=== PATIENT | female | born 1960 | race Caucasian/White ===

== ENCOUNTER 2017-06-01 19:35 | Emergency (ER) | payer OTHER ==
[~2017-06-01] VITALS: Ht 160 cm; Wt 65.8 kg
--- NOTE | 2017-06-01 19:52 | NUR ---
PT BIB FAMILY, PT C/O HIGH BP WITH DIZZINESS AND BLURRED VISION X 4 DAYS. PT AOX3 RR EVEN AND UNLABORED. NO SOB NOTED. NAD NOTED. NO NVD AT THIS TIME. PT GOWNED AND PLACED ON MONITOR. DR ROMO AT BEDSIDE FOR EVAL.
[2017-06-01] MEDS ORDERED: hydrALAZINE HCL IV 20 MG VIAL IV ONE (20:00)
[2017-06-01] MEDS ORDERED: LORAZEPAM INJ 2 MG/ML VIAL IV ONE (20:00)
[2017-06-01] MEDS ORDERED: hydrALAZINE HCL IV 20 MG VIAL ONE (20:16)
[2017-06-01 20:19] LABS: BASOPHILS % (AUTO) 0.4 % (0.0-2.0); EOSINOPHILS % (AUTO) 0.4 % (0.0-6.0); HEMATOCRIT 42 % (33-45); HEMOGLOBIN 14.3 g/dL (11.5-14.8); LYMPHOCYTES # (AUTO) 0.7 /CMM (0.8-4.8); LYMPHOCYTES % (AUTO) 17.2 % (20.0-44.0); MEAN CORPUSCULAR HEMOGLOBIN 29 PG (26.0-33.0); MEAN CORPUSCULAR HGB CONC 34 g/dl (31.0-36.0); MEAN CORPUSCULAR VOLUME 85 fL (82-100); MONOCYTES # (AUTO) 0.3 /CMM (0.1-1.30); MONOCYTES % (AUTO) 7.7 % (2.0-12.0); NEUTROPHILS # (AUTO) 2.8 /CMM (1.8-8.9); NEUTROPHILS % (AUTO) 74.3 % (43.0-81.0); PLATELET COUNT (AUTO) 280 /CMM (150-450); RED BLOOD CELL COUNT(AUTO) 4.95 MIL/uL (4.0-5.2); WHITE BLOOD COUNT (AUTO) 3.8 K/uL (4.3-11.0)
[2017-06-01 20:28] LABS: CALCIUM, SERUM 8.6 mg/dL (8.5-10.1); CARBON DIOXIDE 24 mmol/L (21-32); CHLORIDE 97 mmol/L (98-107); CREATININE 0.7 mg/dL (0.6-1.3); GLUCOSE 188 mg/dL (74-106); POTASSIUM 3.1 mmol/L (3.5-5.1); SODIUM SERUM 132 mmol/L (136-145); UREA NITROGEN, BLOOD 10 mg/dL (7-18)
[2017-06-01 20:33] LABS: INR 0.91 (0.87-1.13); PROTHROMBIN TIME 9.5 SECS (9.5-12.7)
[2017-06-01 20:38] LABS: TROPONIN I < 0.017 ng/mL (0.00-0.056)
[2017-06-01] MEDS ORDERED: LORAZEPAM INJ 2 MG/ML VIAL ONE (20:43)
--- NOTE | 2017-06-01 20:46 | NUR ---
PT TO CT.
--- NOTE | 2017-06-01 20:52 | NUR ---
PT RETURNED FROM CT.
--- NOTE | 2017-06-01 21:07 | NUR ---
DR. ROMO AT BEDSIDE SPEAKING TO PT REGARDING RESULTS.
[2017-06-01] MEDS ORDERED: POTASSIUM CHLORIDE 20 MEQ TAB.PRT.SR PO ONE ×2 (21:30)
--- NOTE | 2017-06-01 21:36 | NUR ---
IV removed. Catheter intact and site benign. Pressure and 4x4 applied to site. No bleeding noted. Patient discharged to home in stable condition. Written and verbal after care instructions given. Patient verbalizes understanding of instruction. ambulatory with a steady gait. instructed not to drive. pt verbalize understanding.
[2017-06-01 21:37] VITALS: BP 143/86
== END 2017-06-01 21:38 | disposition home or self-care (01) ==
LOC: ER 19:37
DX: E87.6 Hypokalemia (principal); I10 Essential (primary) hypertension
CPT/HCPCS: 36415; 70450; 71010; 80048; 84484; 85025; 85730; 93005; 96374; 96375; 99285; A4606; J0360; J2060; Z7610

== ENCOUNTER 2020-07-17 20:02 | Emergency (ER) | payer OTHER ==
[~2020-07-17] VITALS: Ht 157.5 cm; Wt 60.3 kg
--- NOTE | 2020-07-17 20:04 | NUR ---
BIBS FOR C/O RUQ BAD PAIN X 3 DAYS. WAS REFFERED BY URGENT CARE FOR "RUQ PAIN W/ HEPATOMEGALY", pt aaox4, not in any distress, no sob, vss, pending md cary
--- NOTE | 2020-07-17 20:33 | NUR ---
PIV 18G STARTED, BLOOD DRAWN AND ALONG W/ URINE SAMPLE WAS SENT TO LAB
--- NOTE | 2020-07-17 20:34 | NUR ---
US TECH AT BED SIDE
[2020-07-17 20:52] LABS: BASOPHILS # (AUTO) 0.1 /CMM (0.0-0.2); BASOPHILS % (AUTO) 1.1 % (0.0-2.0); EOSINOPHILS % (AUTO) 0.6 % (0.0-6.0); HEMATOCRIT 42 % (33-45); HEMOGLOBIN 13.9 g/dL (11.5-14.8); LYMPHOCYTES # (AUTO) 1.6 /CMM (0.8-4.8); LYMPHOCYTES % (AUTO) 27.6 % (20.0-44.0); MEAN CORPUSCULAR HGB CONC 33 g/dl (31.0-36.0); MEAN CORPUSCULAR VOLUME 88 fL (82-100); MONOCYTES # (AUTO) 0.6 /CMM (0.1-1.30); MONOCYTES % (AUTO) 10.1 % (2.0-12.0); NEUTROPHILS # (AUTO) 3.5 /CMM (1.8-8.9); NEUTROPHILS % (AUTO) 60.6 % (43.0-81.0); PLATELET COUNT (AUTO) 303 /CMM (150-450); RED BLOOD CELL COUNT(AUTO) 4.78 MIL/uL (4.0-5.2); WHITE BLOOD COUNT (AUTO) 5.7 K/uL (4.3-11.0)
[2020-07-17 21:11] LABS: ALBUMIN 4.1 g/dL (3.4-5.0); BILIRUBIN,DIRECT 2.6 mg/dL (0.0-0.2); BILIRUBIN,TOTAL 3.7 mg/dL (0.2-1.0); CALCIUM, SERUM 9.5 mg/dL (8.5-10.1); CREATININE 0.8 mg/dL (0.6-1.3); POTASSIUM 3.5 mmol/L (3.5-5.1); TOTAL PROTEIN, SERUM 7.9 g/dL (6.4-8.2)
[2020-07-17 21:16] LABS: BILIRUBIN,URINE SMALL (NEGATIVE); COLOR,URINE YELLOW (YELLOW); PROTEIN,URINE NEGATIVE (NEGATIVE); UGLUCOSE NEGATIVE (NEGATIVE)
[2020-07-17 21:17] LABS: LEUKOCYTE ESTERASE ,URINE SMALL (NEGATIVE); NITRITE, URINE NEGATIVE (NEGATIVE); RBC,URINE 0-2 /HPF (0-2); UROBILINOGEN,URINE 0.2 EU/dL (0.2)
[2020-07-17 21:18] LABS: BACTERIA,URINE Few /HPF (None Seen); SQUAMOUS EPITHELIAL CELL,UR Few /HPF (None Seen)
--- NOTE | 2020-07-17 21:27 | NUR ---
CALLED [facility] FOR US READ
[2020-07-17] MEDS ORDERED: PIPERACILLIN /TAZOBACTAM 3.375 G in IV D5W 50 ML IV ONE (21:30)
[2020-07-17] MEDS ORDERED: MORPHINE SULFATE INJ 2 MG/ML DISP.SYRIN IV ONE (21:30)
[2020-07-17] MEDS ORDERED: ONDANSETRON HCL/PF - ER 4 MG/2 ML VIAL IV ONE (21:30)
--- NOTE | 2020-07-17 21:38 | NUR ---
MOVE SHEET AND CLINICAL INFORMATION GIVEN TO ADMITTING DEPT
[2020-07-17] MEDS ORDERED: AMLO5TAB4 PO (21:40)
[2020-07-17] MEDS ORDERED: LOSA25TA3 PO (21:40)
[2020-07-17] MEDS ORDERED: MORPHINE SULFATE INJ 2 MG/ML DISP.SYRIN ONE (21:54)
[2020-07-17] MEDS ORDERED: ONDANSETRON HCL/PF 4 MG/2 ML VIAL ONE (21:54)
[2020-07-17] MEDS ORDERED: PIPERACILLIN /TAZOBACTAM 3.375 G VIAL IV ONE (21:54)
--- NOTE | 2020-07-17 22:04 | NUR ---
DR CASAS ON THE PHONE WITH PT'S DAUGHTER, GIDEON
--- NOTE | 2020-07-17 22:26 | NUR ---
DR. SWARTZ SPEAKING WITH DR. REDD (JIMY CHAUDHARY)
--- NOTE | 2020-07-17 23:29 | NUR ---
ACCEPTED: [facility] ROOM#[id number] RN FOR REPORT: [phone] AMBULANCE: [facility] 0030
--- NOTE | 2020-07-18 00:11 | NUR ---
REPORT GIVEN TO MARIVEL MAI AT [facility]. PER RN, TELL TRANSPORT TO PASS BY ER FOR ADMISSION
--- NOTE | 2020-07-18 01:10 | NUR ---
SPOKE WITH J CARLOS FROM [facility], NEW ETA [id number]
[2020-07-18 01:30] VITALS: BP 140/85
--- NOTE | 2020-07-18 01:30 | NUR ---
PT LEFT TO [facility] ([facility]). PT LEFT IN STABLE CONDITION, -SOB/CP. VSS. NOT IN ACUTE DISTRESS. REPORT GIVEN TO AMBULANCE STAFF. PPW GIVEN
== END 2020-07-18 01:30 | disposition short-term general hospital (02) ==
LOC: ER 20:05
DX: K85.10 Biliary acute pancreatitis without necrosis or infection (principal); N30.90 Cystitis, unspecified without hematuria; R74.8 Abnormal levels of other serum enzymes; R17 Unspecified jaundice; I10 Essential (primary) hypertension; Z20.822 Contact with and (suspected) exposure to COVID-19
CPT/HCPCS: 36415; 76705; 80048; 80076; 81001; 83690; 85025; 87086; 87426; 96365; 96375; 99285; C9803; J2270; J2405; J2543

== ENCOUNTER 2022-04-11 07:49 | Emergency (ER) | payer OTHER ==
[~2022-04-11] VITALS: Ht 157.5 cm; Wt 59.0 kg
[~2022-04-11 07:49] MED LIST: AMLO5TAB4 PO; LOSA25TA3 PO
--- NOTE | 2022-04-11 08:00 | NUR ---
Received pt 61yrs femal came from home accompany by tamiko c/o dizzy this morning awake and alert fallow command respiration spont and easy
[2022-04-11] MEDS ORDERED: ONDANSETRON HCL/PF 4 MG/2 ML VIAL ONE (08:20)
[2022-04-11] MEDS ORDERED: MAG HYDROX/AL HYDROX/SIMETH 30 ML UDC PO ONE (08:30)
[2022-04-11] MEDS ORDERED: ONDANSETRON HCL/PF 4 MG/2 ML VIAL IVP ONE (08:30)
[2022-04-11] MEDS ORDERED: MECLIZINE HCL 12.5 MG TABLET PO ONE (08:30)
[2022-04-11] MEDS ORDERED: IV NS 0.9% 1,000 ML BAG IV ONE (08:30)
[2022-04-11] MEDS ORDERED: FAMOTIDINE (20 MG) 20 MG TABLET PO ONE (08:30)
[2022-04-11] MEDS ORDERED: LIDOCAINE VISCOUS 2% UD 15 ML UDC MM ONE (08:30)
[2022-04-11 08:33] LABS: BASOPHILS % (AUTO) 0.7 % (0.0-2.0); EOSINOPHILS % (AUTO) 2.1 % (0.0-6.0); HEMATOCRIT 41 % (33-45); HEMOGLOBIN 13.8 g/dL (11.5-14.8); LYMPHOCYTES # (AUTO) 2.4 K/uL (0.8-4.8); LYMPHOCYTES % (AUTO) 44.8 % (20.0-44.0); MEAN CORPUSCULAR HGB CONC 33 g/dl (31.0-36.0); MEAN CORPUSCULAR VOLUME 87 fL (82-100); MONOCYTES # (AUTO) 0.3 K/uL (0.1-1.30); NEUTROPHILS # (AUTO) 2.5 K/uL (1.8-8.9); NEUTROPHILS % (AUTO) 46.4 % (43.0-81.0); PLATELET COUNT (AUTO) 324 K/uL (150-450); RED BLOOD CELL COUNT(AUTO) 4.73 MIL/uL (4.0-5.2); WHITE BLOOD COUNT (AUTO) 5.3 K/uL (4.3-11.0)
[2022-04-11] MEDS ORDERED: MAG HYDROX/AL HYDROX/SIMETH 30 ML UDC ONE (08:33)
[2022-04-11] MEDS ORDERED: MECLIZINE HCL 25 MG TABLET ONE (08:33)
[2022-04-11] MEDS ORDERED: LIDOCAINE VISCOUS 2% UD 15 ML UDC ONE (08:33)
[2022-04-11] MEDS ORDERED: FAMOTIDINE (20 MG) 20 MG TABLET ONE (08:33)
[2022-04-11 08:41] LABS: CREATININE 0.7 mg/dL (0.6-1.3); POTASSIUM 3.6 mmol/L (3.5-5.1)
--- NOTE | 2022-04-11 08:45 | NUR ---
inserted ango catheter g 20 on lt AC BLOOD drow and sent to lab
--- NOTE | 2022-04-11 08:55 | NUR ---
TO CT SACN of head via mora
--- NOTE | 2022-04-11 11:00 | NUR ---
UA SENT TO LAB
[2022-04-11] MEDS ORDERED: AMLO-212 PO (11:42)
[2022-04-11] MEDS ORDERED: LOSA50TA39 PO (11:42)
[2022-04-11] MEDS ORDERED: ASPI-1498 PO (11:42)
--- NOTE | 2022-04-11 11:46 | NUR ---
MOVE SHEET SUBMITTED.
--- NOTE | 2022-04-11 12:21 | NUR ---
JOSE ANTONIO HAIRSTON SENT TO LAB
--- NOTE | 2022-04-11 13:27 | NUR ---
SPOKE TO JIMY DINH [phone]. FAXED COVID RESULT TO [phone]
[2022-04-11] MEDS: LORAZEPAM 1 MG TABLET PO ONE ×2 (13:30→16:10)
[2022-04-11] MEDS: ASPIRIN 81 MG TAB.CHEW PO ONE ×2 (13:30→16:11)
[2022-04-11] MEDS ORDERED: IOHEXOL-350 100 ML VIAL IV ONE (13:40)
[2022-04-11] MEDS ORDERED: IV NS 0.9% 250 ML IV ONE (13:40)
--- NOTE | 2022-04-11 13:53 | NUR ---
wating for telmetery bed
--- NOTE | 2022-04-11 15:37 | NUR ---
ACCEPTED [facility]. BED [phone] TRANSPORT ETA PENDING.
--- NOTE | 2022-04-11 16:03 | NUR ---
HAND OFF SAMANTHA ORTA TRANSFER TO [facility] ROOM [id number]
--- NOTE | 2022-04-11 16:04 | NUR ---
[facility] CALLED, ETA 60-75 MIN PER J CARLOS.
[2022-04-11] MEDS ORDERED: LORAZEPAM 0.5 MG TABLET ONE (16:07)
[2022-04-11] MEDS ORDERED: ASPIRIN 81 MG TAB.CHEW ONE (16:08)
--- NOTE | 2022-04-11 17:49 | NUR ---
MARCY AT BED SIDE(JEN) [facility]
[2022-04-11 18:18] VITALS: BP 151/79
== END 2022-04-11 18:59 | disposition short-term general hospital (02) ==
LOC: ER 07:50
DX: R42 Dizziness and giddiness (principal); R94.02 Abnormal brain scan; I10 Essential (primary) hypertension; Z20.822 Contact with and (suspected) exposure to COVID-19; Z79.82 Long term (current) use of aspirin; Z79.899 Other long term (current) drug therapy
CPT/HCPCS: 99285; 70498; 96374; 96361; 87426; 93005; 70496; 85025; 80048; 36415; 84484; 87081; 70450; J8597; J2405; J7030; J7050; Q9967; C9803

== ENCOUNTER 2023-03-14 20:01 | Emergency (ER) | payer OTHER ==
[~2023-03-14] VITALS: Ht 160 cm; Wt 59.0 kg
[~2023-03-14 20:01] MED LIST changes: +AMLO-212 PO; -AMLO5TAB4 PO; +ASPI-1498 PO; -LOSA25TA3 PO; +LOSA50TA39 PO
[2023-03-14 21:11] VITALS: TEMP 98.9
[2023-03-14 21:46] LABS: BASOPHILS % (AUTO) 0.6 % (0.0-2.0); EOSINOPHILS % (AUTO) 0.3 % (0.0-6.0); HEMATOCRIT 41 % (33-45); HEMOGLOBIN 13.6 g/dL (11.5-14.8); LYMPHOCYTES # (AUTO) 1.1 K/uL (0.8-4.8); LYMPHOCYTES % (AUTO) 14.4 % (20.0-44.0); MEAN CORPUSCULAR HEMOGLOBIN 29 PG (26.0-33.0); MEAN CORPUSCULAR HGB CONC 33 g/dl (31.0-36.0); MEAN CORPUSCULAR VOLUME 87 fL (82-100); MONOCYTES # (AUTO) 0.3 K/uL (0.1-1.30); MONOCYTES % (AUTO) 3.7 % (2.0-12.0); NEUTROPHILS # (AUTO) 6.4 K/uL (1.8-8.9); PLATELET COUNT (AUTO) 329 K/uL (150-450); RED CELL DISTRIBUTION WIDTH 13.8 % (11.5-15.0); WHITE BLOOD COUNT (AUTO) 7.9 K/uL (4.3-11.0)
[2023-03-14 22:04] LABS: CALCIUM, SERUM 9.5 mg/dL (8.5-10.1); CARBON DIOXIDE 27 mmol/L (21-32); CHLORIDE 103 mmol/L (98-107); CREATININE 0.7 mg/dL (0.6-1.3); GLUCOSE 120 mg/dL (74-106); POTASSIUM 3.9 mmol/L (3.5-5.1); SODIUM SERUM 137 mmol/L (136-145); UREA NITROGEN, BLOOD 13 mg/dL (7-18)
[2023-03-14] MEDS ORDERED: CT SWABBABLE VALVE TRANS SET 1 EA INFUS.SET MC ONE (23:28)
[2023-03-14] MEDS ORDERED: IOHEXOL-350 100 ML VIAL IV ONE (23:28)
[2023-03-14] MEDS ORDERED: IV NS 0.9% 250 ML IV ONE (23:28)
[2023-03-15] MEDS ORDERED: LABETALOL HCL IV 100MG VIAL ONE (01:14)
[2023-03-15] MEDS ORDERED: LABETALOL HCL IV 100MG VIAL IV ONE (01:30)
[2023-03-15] MEDS ORDERED: IV NS 0.9% 1,000 ML BAG IV ONE (01:30)
[2023-03-15 05:23] VITALS: BP 161/85; O2SAT 97
== END 2023-03-15 05:41 | disposition short-term general hospital (02) ==
LOC: ER 20:04
DX: H53.129 Transient visual loss, unspecified eye (principal); I10 Essential (primary) hypertension; R51.9 Headache, unspecified; Z79.899 Other long term (current) drug therapy; Z79.82 Long term (current) use of aspirin; Z20.822 Contact with and (suspected) exposure to COVID-19
CPT/HCPCS: 99285; 70498; 71045; 93005; 70496; 85025; 80048; 36415; 84484; 70450; 96374; 96361; 87426; J7050; Q9967; J3490; J7030; C9803